=== PATIENT | male | born 1965 | race Caucasian/White ===

== ENCOUNTER 2016-12-12 18:07 | Inpatient (IN) | payer MEDICAID ==
[~2016-12-12] VITALS: Ht 167.6 cm; Wt 82.9 kg
[2016-12-12 19:23] LABS: BASOPHILS % (AUTO) 0.6 % (0.0-2.0); EOSINOPHILS % (AUTO) 2.3 % (1.0-6.0); HEMATOCRIT 43.8 % (41-53); HEMOGLOBIN 14.6 g/dL (13.5-17.5); LYMPHOCYTES # (AUTO) 2.7 K/uL (1.0-4.8); LYMPHOCYTES % (AUTO) 34.8 % (22.0-44.0); MEAN CORPUSCULAR HEMOGLOBIN 31.4 pg (26.0-34.0); MEAN CORPUSCULAR HGB CONC 33.4 G/dL (31.0-37.0); MEAN CORPUSCULAR VOLUME 94 fL (80-100); MONOCYTES # (AUTO) 0.6 K/uL (0.1-1.0); MONOCYTES % (AUTO) 8.2 % (2.0-9.0); NEUTROPHILS # (AUTO) 4.1 K/uL (1.8-7.7); NEUTROPHILS % (AUTO) 54.1 % (40.0-70.0); PLATELET COUNT (AUTO) 214 K/uL (150-450); RED BLOOD CELL COUNT(AUTO) 4.65 MIL/uL (4.50-5.90); RED CELL DISTRIBUTION WIDTH 14.5 % (11.5-14.5); WHITE BLOOD COUNT (AUTO) 7.7 K/uL (4.5-11.0)
[2016-12-12 19:37] LABS: ANION GAP 8 mmol/L (8-16); CALCIUM, TOTAL 9.3 mg/dL (8.8-10.5); CARBON DIOXIDE 30 mmol/L (22-29); CHLORIDE 101 mmol/L (98-107); CREATININE 0.96 mg/dL (0.60-1.30); GLOMERULAR FILTR. RATE CALC > 60 mL/min (>60); POTASSIUM 3.9 mmol/L (3.5-5.1); SODIUM SERUM 139 mmol/L (136-145); UREA NITROGEN, BLOOD 11 mg/dL (7-18)
[2016-12-12 19:40] LABS: ALANINE AMINOTRANSFERASE 19 U/L (12-78); ASPARTATE AMINOTRANSFERASE 19 U/L (15-37); BILIRUBIN,TOTAL 0.2 mg/dL (0.1-1.0); TOTAL PROTEIN, SERUM 7.4 g/dL (6.4-8.2)
[2016-12-12] MEDS ORDERED: HALOPERIDOL 5 MG TABLET PO PRN (20:00)
[2016-12-12] MEDS ORDERED: LORazepam 2 MG TABLET PO ONE (20:30)
[2016-12-12] MEDS ORDERED: ACETAMINOPHEN 500 MG TABLET PO ONE (20:30)
[2016-12-13 00:14] VITALS: BP 122/75
[2016-12-13] MEDS ORDERED: PNEUMOCOCCAL VACCINE POLYVALENT 0.5 ML VIAL [PPSV23] IM ONE (03:45)
[2016-12-13] MEDS ORDERED: MAG HYDROX/AL HYDROX/SIMETH ES 30 ML SUSPENSION UDCUP PO PRN (08:00)
[2016-12-13 08:44] VITALS: BP 127/82
[2016-12-13] MEDS: LORazepam 2 MG TABLET PO PRN ×2 (09:54→18:05)
[2016-12-13] MEDS: PANTOPRAZOLE SODIUM 40 MG DR TABLET PO SCH (09:54)
[2016-12-13] MEDS ORDERED: ONDANSETRON HCL 4 MG TABLET PO PRN (10:00)
[2016-12-13] MEDS: ACETAMINOPHEN 325 MG TABLET PO PRN ×2 (11:31→18:04)
[2016-12-13 16:15] VITALS: BP 126/82
[2016-12-13 18:02] VITALS: BP 122/89
[2016-12-13 19:00] VITALS: BP 122/78
[2016-12-13] MEDS: ZOLPIDEM TARTRATE 10 MG TABLET PO PRN (20:11)
[2016-12-13] MEDS ORDERED: OLANZapine 5 MG TABLET PO SCH (21:00)
[2016-12-14 06:38] VITALS: BP 100/60
[2016-12-14] MEDS: LORazepam 2 MG TABLET PO PRN ×2 (08:42→16:37)
[2016-12-14] MEDS: PANTOPRAZOLE SODIUM 40 MG DR TABLET PO SCH (08:42)
[2016-12-14] MEDS: ACETAMINOPHEN 325 MG TABLET PO PRN (08:45)
[2016-12-14] MEDS ORDERED: FLUoxetine HCL 20 MG CAPSULE PO SCH (09:00)
[2016-12-14 09:04] VITALS: BP 126/80
[2016-12-14 16:00] VITALS: BP 117/76
[2016-12-14] MEDS ORDERED: OLANZapine 10 MG TABLET PO SCH (21:00)
[2016-12-15 06:50] VITALS: BP 128/77
[2016-12-15] MEDS: PANTOPRAZOLE SODIUM 40 MG DR TABLET PO SCH (08:37)
[2016-12-15] MEDS: LORazepam 2 MG TABLET PO PRN ×2 (08:38→20:02)
[2016-12-15 08:46] VITALS: BP 125/80
[2016-12-15] MEDS ORDERED: FLUoxetine HCL 20 MG CAPSULE PO SCH (09:00)
[2016-12-15 09:05] VITALS: BP 127/70
[2016-12-15] MEDS: ACETAMINOPHEN 325 MG TABLET PO PRN (09:06)
[2016-12-15 10:06] VITALS: BP 122/72
[2016-12-15 16:00] VITALS: BP 131/88
[2016-12-15] MEDS: OLANZapine 7.5 MG TABLET PO SCH (20:02)
[2016-12-16 06:33] VITALS: BP 118/62
[2016-12-16 08:14] VITALS: BP 114/76
[2016-12-16] MEDS: PANTOPRAZOLE SODIUM 40 MG DR TABLET PO SCH (09:08)
[2016-12-16] MEDS: FLUoxetine HCL 20 MG CAPSULE PO SCH (09:08)
[2016-12-16 09:43] VITALS: BP 116/68
[2016-12-16] MEDS: LORazepam 2 MG TABLET PO PRN (09:44)
[2016-12-16] MEDS: ACETAMINOPHEN 325 MG TABLET PO PRN (09:44)
[2016-12-16 10:44] VITALS: BP_SYST 116; BP_SYST 118; BP_DIAS 70; BP_DIAS 75
[2016-12-16 16:12] VITALS: BP 125/76
[2016-12-16] MEDS: OLANZapine 7.5 MG TABLET PO SCH (20:18)
[2016-12-16] MEDS: ZOLPIDEM TARTRATE 10 MG TABLET PO PRN (20:41)
[2016-12-16] MEDS ORDERED: FLUO-191 PO (20:41)
[2016-12-16] MEDS ORDERED: PANT40TA25 PO (20:41)
[2016-12-16] MEDS ORDERED: OLAN7.5T2 PO (20:41)
[2016-12-17 07:20] VITALS: BP 120/78
[2016-12-17 08:32] VITALS: BP 113/58
[2016-12-17] MEDS: FLUoxetine HCL 20 MG CAPSULE PO SCH (08:55)
[2016-12-17] MEDS: LORazepam 2 MG TABLET PO PRN (08:55)
[2016-12-17] MEDS: PANTOPRAZOLE SODIUM 40 MG DR TABLET PO SCH (08:55)
== END 2016-12-17 09:45 | disposition home or self-care (01) | DRG 750 ==
LOC: EMS 18:07 → B2S 20:00
PROVIDERS: ADMIT Psychiatry & Neurology Psychiatry; ATTEND Psychiatry & Neurology Psychiatry
DX: F25.1 Schizoaffective disorder, depressive type (principal); R45.851 Suicidal ideations; Z59.0 Homelessness; I10 Essential (primary) hypertension; F60.3 Borderline personality disorder; F10.20 Alcohol dependence, uncomplicated; F12.90 Cannabis use, unspecified, uncomplicated; Z62.819 Personal history of unspecified abuse in childhood; F17.210 Nicotine dependence, cigarettes, uncomplicated; Z91.5 Personal history of self-harm; Z63.8 Other specified problems related to primary support group; Z88.0 Allergy status to penicillin; Z28.21 Immunization not carried out because of patient refusal; Z88.1 Allergy status to other antibiotic agents; Z71.6 Tobacco abuse counseling; Z71.41 Alcohol abuse counseling and surveillance of alcoholic; Z71.51 Drug abuse counseling and surveillance of drug abuser; Z98.890 Other specified postprocedural states
CPT/HCPCS: 87081; 99285; G0480; Q0162